=== PATIENT | female | born 1965 | race Caucasian/White ===

== ENCOUNTER 2020-04-06 11:05 | Outpatient (CLI) | payer MEDICAID ==
[2020-04-06 18:42] LABS: BASOPHILS # (AUTO) 0.1 10^3/uL (0.0-0.1); BASOPHILS % (AUTO) 0.9 %; EOSINOPHILS % (AUTO) 0.5 %; HGB - HEMOGLOBIN 11.9 g/dL (12.0-16.0); LYMPHOCYTES # (AUTO) 2.2 10^3/uL (1.5-3.5); LYMPHOCYTES % (AUTO) 40.3 %; MEAN CORPUSCULAR HGB CONC 31.9 g/dL (32.0-36.0); MEAN CORPUSCULAR VOLUME 103.3 fL (81.0-99.0); MEAN PLATELET VOLUME 10.7 fL (7.9-10.8); MONOCYTES # (AUTO) 0.4 10^3/uL (0.0-1.0); MONOCYTES % (AUTO) 6.4 %; NEUTROPHILS # (AUTO) 2.8 10^3/uL (1.5-6.6); NEUTROPHILS % (AUTO) 51.7 %; PLT - PLATELET COUNT 264 10^3/uL (130-450); RED BLOOD COUNT 3.61 10^6/uL (4.20-5.40); RED CELL DISTRIBUTION WIDTH 12.1 % (12.0-15.0); WHITE BLOOD COUNT 5.5 x10^3/uL (4.8-10.8)
[2020-04-06 18:46] LABS: ALBUMIN 4.4 g/dL (3.2-5.5); ALBUMIN/GLOBULIN RATIO 1.4 (1.0-2.2); ALKALINE PHOSPHATASE 51 IU/L (42-121); ALT ALANINE AMINOTRANSFERASE 10 IU/L (10-60); AST ASPARTATE AMINOTRANSFERASE 21 IU/L (10-42); BILIRUBIN,TOTAL 0.4 mg/dL (0.2-1.0); BUN - BLOOD UREA NITROGEN 9 mg/dL (6-20); CALCIUM 9.5 mg/dL (8.5-10.3); CARBON DIOXIDE - CO2 26 mmol/L (21-32); CHLORIDE 108 mmol/L (101-111); CHOL/HDL RATIO 3.5 (<4.4); CHOLESTEROL 237 mg/dL; CREATININE 0.4 mg/dL (0.4-1.0); GLUCOSE 87 mg/dL (70-100); HDL CHOLESTEROL 67 mg/dL; LDL CHOLESTEROL,CALCULATED 140 mg/dL; LDL/HDL RATIO 2.1 (<4.4); SODIUM 141 mmol/L (135-145); TOTAL PROTEIN 7.5 g/dL (6.7-8.2); VLDL CHOLESTEROL 30 mg/dL
[2020-04-06 20:14] LABS: HEMOGLOBIN A1c% 5.4 % (4.27-6.07)
== END 2020-04-06 23:59 | disposition home or self-care (01) ==
LOC: LAB.WCP 11:05
PROVIDERS: ATTEND Physician Assistant
DX: Z00.00 Encounter for general adult medical examination without abnormal findings (principal); E53.8 Deficiency of other specified B group vitamins; R73.03 Prediabetes
CPT/HCPCS: 36415; 80053; 80061; 82607; 83036; 83721; 84443; 85025

== ENCOUNTER 2020-07-04 14:26 | Emergency (ER) | payer MEDICAID ==
--- NOTE | 2020-07-04 15:13 | ED Physician Documentation ---
History of Present Illness - Stated complaint Stated Complaint: ABD PX, INFLAMATION - Chief complaint Chief Complaint: Abd Pain - History obtained from History obtained from: Patient - Additonal information Additional information: 54-year-old female presents to the emergency department for evaluation of left lower abdominal pain that began yesterday. She describes it as a sharp constant pressure worse with movement. No fevers no vomiting. No history of similar. She denies changes in bowel habits, no constipation bloody stools. She denies dysuria but states that she has been making very little urine over the 24 hours. Denies any pertinent past surgical history. No history of colonoscopy though she did have fecal occult testing completed to rule out colon cancer. In follow-up patient does report to me that about 8 years ago she was told that she had hematuria on a routine exam. Subsequent follow-up with urologist including a cystoscopy did not reveal any obvious cause or worrisome findings in regard to the hematuria. pmh: deneis htn, dm meds: none soc; no tobacco, etoh Review of Systems Constitutional: reports: Reviewed and negative Ears: reports: Reviewed and negative Nose: reports: Reviewed and negative Throat: reports: Reviewed and negative Cardiac: reports: Reviewed and negative Respiratory: reports: Reviewed and negative GI: reports: Abdominal Pain. denies: Nausea, Vomiting, Constipation, Diarrhea, Bloody / black stool : denies: Dysuria, Frequency, Hematuria, Discharge Skin: reports: Reviewed and negative Musculoskeletal: reports: Reviewed and negative Neurologic: reports: Reviewed and negative PD PAST MEDICAL HISTORY - Present Medications Home Medications: Ambulatory Orders Medication Instructions Recorded Confirmed Hydrocodone/Acetaminophen [[place] 1 each PO BID PRN #10 tablet 07/04/20 5-325 Tablet] Ibuprofen [Motrin] 600 mg PO Q6H PRN #30 tab 07/04/20 - Allergies Allergies/Adverse Reactions: Allergies Allergy/AdvReac Type Severity Reaction Status Date / Time No Known Drug Allergies Allergy Verified 07/04/20 15:18 PD ED PE NORMAL - General General: Alert and oriented X 3, No acute distress - Neck Neck: Supple, no meningeal sign - Cardiac Cardiac: RRR, No murmur - Respiratory Respiratory: Clear bilaterally - Abdomen Abdomen: Normal bowel sounds, Soft. No: Non tender (Focal tenderness left lower quadrant without guarding or rebound. No flank or CVA tenderness.) - Back Back: No CVA TTP, No spinal TTP - Derm Derm: Normal color, Warm and dry, No rash - Extremities Extremities: No deformity - Neuro Neuro: Alert and oriented X 3, remodeler 2-12 intact Eye Opening: Spontaneous Motor: Obeys Commands Verbal: Oriented GCS Score: 15 Results - Vitals Vitals: Vital Signs - 24 hr 07/04/20 07/04/20 07/04/20 14:35 16:40 16:56 Temperature 36.3 C L 36.7 C Heart Rate 71 68 81 Respiratory 15 18 18 Rate Blood Pressure 146/79 H 141/69 H 135/79 H O2 Saturation 100 100 100 Oxygen O2 Source Room air - Labs Labs: Laboratory Tests 07/04/20 07/04/20 07/04/20 15:00 15:30 15:30 WBC 8.2 RBC 3.74 L Hgb 12.2 Hct 37.0 MCV 98.9 MCH 32.6 H MCHC 33.0 RDW 11.6 L Plt Count 256 MPV 10.1 Neut # (Auto) 5.0 Lymph # (Auto) 2.3 [place] # (Auto) 0.8 Eos # (Auto) 0.1 Baso # (Auto) 0.0 Absolute Nucleated RBC 0.00 Nucleated RBC % 0.0 Sodium 137 Potassium 3.7 Chloride 99 L Carbon Dioxide 26 Anion Gap 12.0 BUN 10 Creatinine 0.6 Estimated GFR (MDRD) 103 Glucose 87 Calcium 9.6 Total Bilirubin 0.7 AST 19 ALT 10 Alkaline Phosphatase 55 Total Protein 7.3 Albumin 4.1 Globulin 3.2 Albumin/Globulin Ratio 1.3 Lipase 25 Urine Color YELLOW Urine Clarity CLEAR Urine pH 6.0 Ur Specific [place] <=1.005 Urine Protein NEGATIVE Urine Glucose (UA) NEGATIVE Urine Ketones TRACE Urine Occult Blood MODERATE H Urine Nitrite NEGATIVE Urine Bilirubin NEGATIVE Urine Urobilinogen 0.2 (NORMAL) Ur Leukocyte Esterase NEGATIVE Urine RBC 6-10 H Urine WBC 0-3 Ur Squamous Epith Cells RARE Squamous Urine Bacteria Rare Ur Microscopic Review INDICATED Urine Culture Comments NOT INDICATED - Rads (name of study) CT abd Radiology: Final report received (Acute sigmoid colon diverticulitis, mild severity. No abscess or pneumoperitoneum.) PD MEDICAL DECISION MAKING - ED course Complexity details: reviewed results, re-evaluated patient, considered differential, d/w patient ED course: 54-year-old female presents the emergency department for 2 days of acute left lower abdominal pain. No fevers vomiting diarrhea or bloody stools. Routine screening labs show no leukocytosis. Serum chemistry is unrevealing. She does have some hematuria in her urine. She discussed this with me and has had benign hematuria in the past previously evaluated with urologist and cystoscopy. The CT of the abdomen today shows acute sigmoid colon diverticulitis mild severity without abscess or perforation. These findings were discussed with the patient. Given mild severity lack of fevers leukocytosis and a reassuring abdominal exam at this time we will defer any antibiotics. Patient does have a follow-up appointment within the next week with her primary care provider which I have encouraged her to keep. I have advised her to have a clear liquid diet until pain begins to improve. We'll also recommend ibuprofen and a very limited amount of [place]. If pain is worsening suddenly severe she has bloody bowel movements fever she will return to the ER for a second evaluation Departure - Departure Disposition: Home, Self Care Clinical Impression: Diverticulitis Condition: Stable Record reviewed to determine appropriate education?: Yes Instructions: ED Diverticulitis Follow-Up: Rochelle Rodriguez PA [Primary Care Provider] - Prescriptions: Ibuprofen [Motrin] 600 mg PO Q6H PRN #30 tab PRN Reason: Pain Hydrocodone/Acetaminophen [[place] 5-325 Tablet] 1 each PO BID PRN #10 tablet PRN Reason: Pain Comments: Jossy I hope that you are feeling better soon. You're seen today in the ER for lower abdominal pain. Your labs are all essentially normal. As we did discuss there is a small amount of blood in your urine but had this in the past. There is no signs of infection in the urine or in your blood. The CT scan of your abdomen shows mild sigmoid colon diverticulitis. There is no abscess or perforation. Because you have mild disease, you have no fevers, your pain is relatively well controlled we would like to discharge you home. The recommendation at this time is for you to have a clear liquid diet for the next 3 to 4 days. I would expect that your symptoms are beginning to improve. As they begin to improve you can advance your diet slowly with bananas rice applesauce and toast. If at any point you find that your pain is worsening, you have bloody bowel movements, any fevers, suddenly severe pain return immediately to the ER. Do not miss follow-up with your primary care provider next week. A referral should be made for you to be seen by gastroenterology as well as have a colonoscopy scheduled in the future.
[2020-07-04 15:25] LABS: BILIRUBIN,URINE NEGATIVE (NEGATIVE); GLUCOSE, URINE (UA) NEGATIVE (NEGATIVE); KETONES,URINE (UA) TRACE mg/dL (NEGATIVE); LEUKOCYTE ESTERASE, URINE NEGATIVE (NEGATIVE); NITRITE,URINE NEGATIVE (NEGATIVE); OCCULT BLOOD,URINE MODERATE (NEGATIVE); PROTEIN,URINE NEGATIVE (NEGATIVE); UROBILINOGEN,URINE 0.2 (NORMAL) E.U./dL (NORMAL)
[2020-07-04 15:42] LABS: CLARITY,URINE CLEAR (CLEAR)
[2020-07-04 15:47] LABS: BACTERIA,URINE Rare /HPF (None Seen); SQUAMOUS EPITHELIAL CELL,UR RARE Squamous (<= Few); WBC,URINE 0-3 /HPF (0-5)
[2020-07-04 15:48] LABS: BASOPHILS % (AUTO) 0.5 %; EOSINOPHILS # (AUTO) 0.1 10^3/uL (0.0-0.7); EOSINOPHILS % (AUTO) 0.6 %; HGB - HEMOGLOBIN 12.2 g/dL (12.0-16.0); LYMPHOCYTES # (AUTO) 2.3 10^3/uL (1.5-3.5); LYMPHOCYTES % (AUTO) 28.4 %; MEAN CORPUSCULAR HEMOGLOBIN 32.6 pg (27.0-31.0); MEAN CORPUSCULAR VOLUME 98.9 fL (81.0-99.0); MEAN PLATELET VOLUME 10.1 fL (7.9-10.8); MONOCYTES # (AUTO) 0.8 10^3/uL (0.0-1.0); MONOCYTES % (AUTO) 9.2 %; NEUTROPHILS % (AUTO) 61.1 %; PLT - PLATELET COUNT 256 10^3/uL (130-450); RED BLOOD COUNT 3.74 10^6/uL (4.20-5.40); RED CELL DISTRIBUTION WIDTH 11.6 % (12.0-15.0); WHITE BLOOD COUNT 8.2 x10^3/uL (4.8-10.8)
[2020-07-04 15:56] LABS: ALBUMIN 4.1 g/dL (3.2-5.5); ALBUMIN/GLOBULIN RATIO 1.3 (1.0-2.2); BILIRUBIN,TOTAL 0.7 mg/dL (0.2-1.0); CALCIUM 9.6 mg/dL (8.5-10.3); CREATININE 0.6 mg/dL (0.4-1.0); POTASSIUM 3.7 mmol/L (3.5-5.0); TOTAL PROTEIN 7.3 g/dL (6.7-8.2)
[2020-07-04] MEDS ORDERED: IOVERSOL 320 100 ML VIAL IVP ONE ×2 (16:07→16:52)
[2020-07-04 16:57] VITALS: BP 135/79
--- NOTE | 2020-07-04 17:00 | CT Report ---
PROCEDURE: Abdomen/Pelvis W INDICATIONS: LLQ abdominal pain CONTRAST: IV CONTRAST: Optiray 320 ml: 100 PO CONTRAST: *NO PO CONTRAST TECHNIQUE: After the administration of intravenous contrast, 5 mm thick sections acquired from the diaphragms to the symphysis. 5 mm thick coronal and sagittal reformats were acquired. For radiation dose reducti on, the following was used: automated exposure control, adjustment of mA and/or kV according to korey ent size. COMPARISON: None. FINDINGS: Image quality: Excellent. ABDOMEN: Lung bases: Lung bases are clear. No pleural effusion. Heart size is normal. Solid organs: Liver and spleen are normal in size and enhancement. Calcific granuloma in the right l obe of the liver. Gallbladder is unremarkable. Biliary system is non dilated. Pancreas enhances nor [place]hel. No adrenal nodules. Kidneys demonstrate normal size and enhancement, without hydronephrosis. Right kidney inferior pole simple cyst measuring 1.6 cm. Peritoneum and bowel: Segment colon diverticulosis. Mild inflammatory change in the left lower quadra nt surrounding the sigmoid colon, (6/16). This is most compatible with acute diverticulitis. No fluid collection. No small bowel obstruction. The appendix is within normal limits in caliber. No pneumope ritoneum. Nodes and vessels: No retroperitoneal or mesenteric adenopathy by size criteria. Aorta and inferior vena cava are normal in size. Miscellaneous: No ventral hernias. PELVIS: Genitourinary: Bladder is unremarkable. Vertically oriented uterus. Miscellaneous: No inguinal hernias or adenopathy. Bones: No suspicious bony lesions. No vertebral body compression fractures. IMPRESSION: Acute sigmoid colon diverticulitis, mild severity. No abscess or pneumoperitoneum. Reviewed by: Bello Mann MD on 07/04/2020 3:59 PM [facility] Approved by: Bello Mann MD on 07/04/2020 3:59 PM [facility] Station ID: [id number]
== END 2020-07-04 17:46 | disposition home or self-care (01) ==
LOC: ED 14:26
DX: K57.32 Diverticulitis of large intestine without perforation or abscess without bleeding (principal)
CPT/HCPCS: 36415; 74177; 80053; 81001; 83690; 85025; 99284; Q9967; 81003; 87086

== ENCOUNTER 2021-02-25 08:00 | Outpatient (CLI) | payer MEDICAID ==
[2021-02-25 17:58] LABS: BASOPHILS % (AUTO) 0.7 %; EOSINOPHILS % (AUTO) 0.7 %; HCT - HEMATOCRIT 36.5 % (37.0-47.0); LYMPHOCYTES # (AUTO) 2.5 10^3/uL (1.5-3.5); LYMPHOCYTES % (AUTO) 43.7 %; MEAN CORPUSCULAR HEMOGLOBIN 33.1 pg (27.0-31.0); MEAN CORPUSCULAR HGB CONC 32.9 g/dL (32.0-36.0); MEAN CORPUSCULAR VOLUME 100.8 fL (81.0-99.0); MEAN PLATELET VOLUME 10.5 fL (7.9-10.8); MONOCYTES # (AUTO) 0.5 10^3/uL (0.0-1.0); MONOCYTES % (AUTO) 9.1 %; NEUTROPHILS # (AUTO) 2.6 10^3/uL (1.5-6.6); NEUTROPHILS % (AUTO) 45.6 %; PLT - PLATELET COUNT 259 10^3/uL (130-450); RED BLOOD COUNT 3.62 10^6/uL (4.20-5.40); RED CELL DISTRIBUTION WIDTH 12.1 % (12.0-15.0); WHITE BLOOD COUNT 5.6 x10^3/uL (4.8-10.8)
[2021-02-25 18:28] LABS: ALBUMIN 4.4 g/dL (3.2-5.5); ALBUMIN/GLOBULIN RATIO 1.7 (1.0-2.2); ALKALINE PHOSPHATASE 50 IU/L (42-121); ALT ALANINE AMINOTRANSFERASE 15 IU/L (10-60); AST ASPARTATE AMINOTRANSFERASE 23 IU/L (10-42); BILIRUBIN,TOTAL 0.8 mg/dL (0.2-1.0); BUN - BLOOD UREA NITROGEN 10 mg/dL (6-20); CALCIUM 9.2 mg/dL (8.5-10.3); CARBON DIOXIDE - CO2 29 mmol/L (21-32); CHLORIDE 102 mmol/L (101-111); CHOL/HDL RATIO 3.7 (<4.4); CHOLESTEROL 249 mg/dL; CREATININE 0.5 mg/dL (0.4-1.0); GFR - MDRD 127 (>89); GLUCOSE 83 mg/dL (70-100); HDL CHOLESTEROL 68 mg/dL; LDL CHOLESTEROL,CALCULATED 154 mg/dL; LDL/HDL RATIO 2.3 (<4.4); SODIUM 137 mmol/L (135-145); TRIGLYCERIDES 137 mg/dL; VLDL CHOLESTEROL 27 mg/dL
[2021-02-25 20:23] LABS: ESTIMATED AVERAGE GLUCOSE 114 mg/dL (70-100); HEMOGLOBIN A1c% 5.6 % (4.27-6.07)
== END 2021-02-25 23:59 | disposition home or self-care (01) ==
LOC: LAB.WCP 08:00
PROVIDERS: ATTEND Family Medicine
DX: Z00.00 Encounter for general adult medical examination without abnormal findings (principal); E78.5 Hyperlipidemia, unspecified; E53.8 Deficiency of other specified B group vitamins; R73.03 Prediabetes
CPT/HCPCS: 36415; 80053; 80061; 82607; 83036; 83721; 85025

== ENCOUNTER 2021-03-19 08:32 | Outpatient (CLI) | payer MEDICAID ==
--- NOTE | 2021-03-27 09:34 | Mammography Report ---
BILATERAL DIGITAL SCREENING MAMMOGRAM 3D/2D: 03/19/2021 CLINICAL: Family history of breast cancer. Routine screening. Comparison is made to exams dated: 10/04/2018 mammogram and 08/23/2016 mammogram - [facility]. The tissue of both breasts is heterogeneously dense. This may lower the sensitivit y of mammography. No significant masses, calcifications, or other findings are seen in either breast. There has been no significant interval change. IMPRESSION: NEGATIVE There is no mammographic evidence of malignancy. A 1 year screening mammogram is recommended. This exam was interpreted at Station ID: [id number]. NOTE: For mammograms, a report in lay terms will be sent to the patient. Approximately 15% of breast malignancies will not be visualized mammographically. In the management of a palpable breast mass, a negative mammogram must not discourage biopsy of a clinically suspicious lesion. Electronically Signed By: Alexys Valenzuela M.D. ddp/penrad:03/26/2021 11:02:53 ACR BI-RADS Category 1: Negative 3341F PARENCHYMAL PATTERN: (D) - The breast(s) demonstrate(s) heterogeneously dense fibroglandular bob em. BI-RADS CATEGORY: (1) - 1 RECOMMENDATION: (ANNUAL) - Recommend routine annual screening mammography. [id number] 1 year screening LATERALITY: (B)
== END 2021-03-19 08:33 | disposition home or self-care (01) ==
LOC: DI.N 08:32
DX: Z12.31 Encounter for screening mammogram for malignant neoplasm of breast (principal); Z80.3 Family history of malignant neoplasm of breast

== ENCOUNTER 2021-07-12 08:00 | Outpatient (CLI) | payer MEDICAID ==
[2021-07-12 13:45] LABS: BASOPHILS # (AUTO) 0.1 10^3/uL (0.0-0.1); BASOPHILS % (AUTO) 1.1 %; EOSINOPHILS # (AUTO) 0.4 10^3/uL (0.0-0.7); EOSINOPHILS % (AUTO) 5.8 %; HGB - HEMOGLOBIN 12.1 g/dL (12.0-16.0); LYMPHOCYTES # (AUTO) 2.6 10^3/uL (1.5-3.5); LYMPHOCYTES % (AUTO) 39.8 %; MEAN CORPUSCULAR HEMOGLOBIN 32.4 pg (27.0-31.0); MEAN CORPUSCULAR HGB CONC 32.7 g/dL (32.0-36.0); MEAN CORPUSCULAR VOLUME 98.9 fL (81.0-99.0); MEAN PLATELET VOLUME 10.8 fL (7.9-10.8); MONOCYTES # (AUTO) 0.5 10^3/uL (0.0-1.0); MONOCYTES % (AUTO) 7.7 %; NEUTROPHILS # (AUTO) 2.9 10^3/uL (1.5-6.6); NEUTROPHILS % (AUTO) 45.3 %; PLT - PLATELET COUNT 276 10^3/uL (130-450); RED BLOOD COUNT 3.74 10^6/uL (4.20-5.40); RED CELL DISTRIBUTION WIDTH 11.8 % (12.0-15.0); WHITE BLOOD COUNT 6.4 x10^3/uL (4.8-10.8)
[2021-07-12 14:02] LABS: ALBUMIN 4.1 g/dL (3.2-5.5); ALBUMIN/GLOBULIN RATIO 1.3 (1.0-2.2); BILIRUBIN,TOTAL 0.5 mg/dL (0.2-1.0); CALCIUM 9.5 mg/dL (8.5-10.3); CREATININE 0.6 mg/dL (0.4-1.0); POTASSIUM 3.9 mmol/L (3.5-5.0); TOTAL PROTEIN 7.3 g/dL (6.7-8.2)
[2021-07-12 14:21] LABS: FERRITIN 28.5 ng/mL (11.0-306.8)
== END 2021-07-12 23:59 | disposition home or self-care (01) ==
LOC: LAB.WCP 08:00
PROVIDERS: ATTEND Family Medicine
DX: D64.9 Anemia, unspecified (principal)
CPT/HCPCS: 36415; 80053; 82607; 82728; 83540; 84466; 85025

== ENCOUNTER 2022-03-04 17:38 | Outpatient (CLI) | payer MEDICAID ==
--- NOTE | 2022-03-05 15:02 | XRAY Report ---
PROCEDURE: Shoulder 3 View RT INDICATIONS: R SHOULDER PX TECHNIQUE: 3 views of the shoulder were acquired. COMPARISON: None. FINDINGS: Bones: No fractures or dislocations. No suspicious bony lesions. Visualized ribs appear intact. D egenerative changes of the acromioclavicular joint are present. Soft tissues: Ovoid calcification is present within the soft tissues adjacent to the humeral head. IMPRESSION: 1. No acute fracture or dislocation identified. 2. Calcification adjacent to the humeral head is suspicious for calcific rotator cuff tendinopathy. Reviewed by: Harris Garcia MD on 03/05/2022 3:01 PM PDT Approved by: Harris Garcia MD on 03/05/2022 3:01 PM PDT Station ID: [id number]
== END 2022-03-04 17:39 | disposition home or self-care (01) ==
LOC: DI.N 17:38
PROVIDERS: ATTEND Registered Nurse
DX: M25.511 Pain in right shoulder (principal)

== ENCOUNTER 2022-03-27 21:47 | Emergency (ER) | payer MEDICAID ==
[2022-03-27 22:05] VITALS: BP 127/71
--- NOTE | 2022-03-27 23:20 | XRAY Report ---
PROCEDURE: Shoulder 3 View RT INDICATIONS: acutely worsened pain TECHNIQUE: 3 views of the shoulder were acquired. COMPARISON: 03/04/2022. FINDINGS: Bones: No fractures or dislocations. No suspicious bony lesions. Visualized ribs appear intact. Soft tissues: No suspicious soft tissue calcifications. IMPRESSION: 1. No fracture or dislocation. Reviewed by: Alexys Arnold MD on 03/27/2022 11:19 PM PDT Approved by: Alexys Arnold MD on 03/27/2022 11:19 PM PDT Station ID: [id number]
[2022-03-27] MEDS: HYDROmorphone 1 MG/ML CARPUJECT IM STA (23:25)
[2022-03-27] MEDS: KETOROLAC 60 MG/2 ML VIAL IM STA (23:37)
--- NOTE | 2022-03-27 23:38 | ED Physician Documentation ---
History of Present Illness - Stated complaint Stated Complaint: RT SHOULDER PAIN - Chief complaint Chief Complaint: Ext Problem - History obtained from History obtained from: Patient - Additonal information Additional information: The patient comes to the emergency department with chief complaint of flareup of right shoulder pain. 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 The patient states she is put on a course of steroids and it seemed to get better, but then several days ago, began flaring up again. This time, patient states it hurts so much that she cannot move the shoulder. The pain is mostly anterior but it does go down her lateral upper arm. She states that she has not been moving it much because of the pain and that it is excruciating. She denies a distinct injury or trigger for this particular episode. The patient denies any numbness or tingling. She is scheduled to see an orthopedist in 2-1/2 weeks and has an MRI in about 2 weeks but states she just does not think she can wait that long. She has been taking ibuprofen and Tylenol as needed at home. No other complaints at this time. Review of Systems Ten Systems: 10 systems reviewed and negative Constitutional: reports: Reviewed and negative Eyes: reports: Reviewed and negative Ears: reports: Reviewed and negative Nose: reports: Reviewed and negative Throat: reports: Reviewed and negative Cardiac: reports: Reviewed and negative Respiratory: reports: Reviewed and negative GI: reports: Reviewed and negative : reports: Reviewed and negative Skin: reports: Reviewed and negative Musculoskeletal: reports: Joint pain Neurologic: reports: Reviewed and negative Psychiatric: reports: Reviewed and negative Endocrine: reports: Reviewed and negative Immunocompromised: reports: Reviewed and negative PD PAST MEDICAL HISTORY - Past Medical History Past Medical History: No - Past Surgical History Past Surgical History: Yes - Present Medications Home Medications: Ambulatory Orders Medication Instructions Recorded Confirmed Hydrocodone/Acetaminophen [[place] 1 each PO BID PRN #10 tablet 07/04/20 5-325 Tablet] Ibuprofen [Motrin] 600 mg PO Q6H PRN #30 tab 07/04/20 HYDROcod/ACETAM 5/325 [[place] 5/325] 1 - 2 tablet PO Q6H PRN #20 tablet 03/27/22 predniSONE [Deltasone] 10 mg PO [id number] #42 tab 03/27/22 - Allergies Allergies/Adverse Reactions: Allergies Allergy/AdvReac Type Severity Reaction Status Date / Time No Known Drug Allergies Allergy Verified 03/27/22 21:55 - Social History Does the pt smoke?: No Smoking Status: Never smoker Does the pt drink ETOH?: No Does the pt have substance abuse?: No - Immunizations Immunizations are current?: Yes PD ED PE NORMAL - Vitals Vital signs reviewed: Yes - General General: Alert and oriented X 3, No acute distress, Well developed/nourished - HEENT HEENT: Atraumatic, PERRL, EOMI, Moist mucous membranes - Neck Neck: Supple, no meningeal sign - Cardiac Cardiac: Strong equal pulses - Respiratory Respiratory: No respiratory distress - Derm Derm: Normal color, Warm and dry, No rash - Extremities Extremities: No deformity, No edema, Other (Tenderness palpation over anterior right shoulder. Severely limited range of motion, secondary to subjective pain. No deformity.) - Neuro Neuro: Alert and oriented X 3 - Psych Psych: Normal mood, Normal affect Results - Vitals Vitals: Vital Signs - 24 hr 03/27/22 21:50 Heart Rate 85 Respiratory 14 Rate Blood Pressure 127/71 O2 Saturation 97 Oxygen O2 Source Room air - Rads (name of study) Right shoulder x-ray series Radiology: Final report received, EMP read indepedently, See rad report (No fracture or dislocation) PD MEDICAL DECISION MAKING - ED course Complexity details: reviewed results, re-evaluated patient, considered differential, d/w patient ED course: The patient was treated symptomatically in the emergency department. I discussed with her that we are not going to be able to do an MRI for her shoulder in the emergency department, in part because we do not have MRI at night, but also because the indication is not emergent. I have discussed with the patient the importance of doing range of motion exercises. We have discussed hanging pot stirs and wall creates. We have also discussed symptomatic management at home with ice, ibuprofen, steroid, and narcotic analgesia. I have prescribed the latter 2 for the patient. At this point in time, she should plan to keep her appointment with orthopedics and also, continue the plan for MRI as scheduled. We discussed the usual indications for return. Departure - Departure Disposition: 01 Home, Self Care Clinical Impression: Shoulder pain, right Qualifiers: Chronicity: acute Qualified Code(s): M25.511 - Pain in right shoulder Condition: Stable Instructions: ED Shoulder Pain [facility] Prescriptions: predniSONE [Deltasone] 10 mg PO [id number] #42 tab HYDROcod/ACETAM 5/325 [[place] 5/325] 1 - 2 tablet PO Q6H PRN #20 tablet PRN Reason: Pain Comments: Your x-ray does not show any serious issues with the bone or joints at this time. You most likely have some calcific tendinitis and possibly, some scar ti ssue that is causing adhesive capsulitis. It is very important that you maintain range of motion of your shoulder is much as possible to prevent a "frozen shoulder". To help you mobilize, you may take the ibuprofen plus the steroid taper and the stronger pain medication as needed. These prescriptions have been electronically transmitted to the pharmacy at [facility] in [place]. Once you take the medications and your pain is little better, please do the hanging pot stirs and the wall creeps that we have demonstrated here in the emergency department. You should also ice your shoulder several times a day for 20 to 30 minutes at a time. Once your shoulder feels comfortable enough, it is also advisable that you do not keep in the sling all the time. This is also to prevent your shoulder from freezing up. Please continue your plans to get the MRI and follow-up with orthopedics in a couple of weeks. Discharge Date/Time: 03/28/22 00:03
[2022-03-27] MEDS: ONDANSETRON ODT 4 MG TABLET TL STA (23:58)
== END 2022-03-28 00:03 | disposition home or self-care (01) ==
LOC: ED 21:47
DX: M25.511 Pain in right shoulder (principal)
CPT/HCPCS: 73030; 96372; 99282; 99283; J1170; Q0162

== ENCOUNTER 2022-04-01 12:43 | Outpatient (CLI) | payer MEDICAID ==
--- NOTE | 2022-04-02 09:33 | MRI Report ---
PROCEDURE: Shoulder RT W/O INDICATIONS: PAIN IN RIGHT SHOULDER TECHNIQUE: Noncontrast oblique coronal T2 fast spin echo with fat saturation, oblique sagittal T1 spin echo and T2 fast spin echo with fat saturation, axial T1 spin echo and T2 fast spin echo with fat saturation t hrough the shoulder. COMPARISON: Right shoulder radiographs 03/27/2022 and 03/04/2022. FINDINGS: Image quality: Excellent. Rotator cuff: There is full-thickness tearing of the supraspinatus tendon at the anterior footprint m easuring approximately 7 mm in anteroposterior dimension. Mild osseous edema is seen in the adjacent portion of the greater tuberosity. There is moderate tendinosis of the posterior supraspinatus tendon and infraspinatus tendon. The teres minor and subscapularis tendons are intact. Mild increased T2-we ighted signal is seen throughout the supraspinatus and infraspinatus muscles. No compressive mass is seen in the suprascapular or spinoglenoid notch. No mass is seen along the visualized portions of the brachial plexus. There is mild grade 2 fatty infiltration of the teres minor muscle without increase d T2 weighted signal. The subscapularis muscle is normal in bulk. Bones and bursae: Mild osseous edema is seen at the anterior portion of the greater tuberosity adjace nt to the supraspinatus tendon tear, which may be reactive to the adjacent tendon tear versus seconda ry to traction trabecular bone injury. No discrete fracture is seen. Postsurgical changes are seen in the acromioclavicular joint without recurrent narrowing of the supraspinatus outlet. There is a mode rate subacromial/subdeltoid bursal effusion with prominent synovial hypertrophy. No significant gleno humeral joint effusion is seen. Capsule and soft tissues: There is degeneration of the superior labrum without a displaced tear. The proximal biceps long head tendon demonstrates mild tendinosis. There is partial effacement of the no rmal fat signal in the rotator interval. No capsular defect is seen. IMPRESSION: 1.Full-thickness tearing of the supraspinatus tendon at the anterior footprint measuring 0.7 cm in an teroposterior dimension superimposed on moderate supraspinatus and infraspinatus tendinosis. Osseous edema within the adjacent portion of the greater tuberosity may be reactive or secondary to traction trabecular bone injury. No definite osseous fracture is seen. 2.Diffusely increased T2-weighted signal throughout the supraspinatus and infraspinatus muscles may b e related to low-grade muscle strains, but is suspicious for early or mild denervation changes. No ma ss is seen in the suprascapular or spinoglenoid notch. There is grade [address] the [address] es minor muscle that is suspicious for mild chronic denervation changes. No mass is seen along the co urse of the axillary nerve. 3.Mild tendinosis of the proximal biceps long head tendon. 4.Widening of the acromioclavicular joint is may be postsurgical in nature. No recurrent narrowing of the supraspinatus outlet. 5.Moderate subacromial/subdeltoid bursal effusion with marked synovial hypertrophy or bursitis. Reviewed by: Harris Carroll MD on 04/02/2022 9:32 AM PDT Approved by: Harris Carroll MD on 04/02/2022 9:32 AM PDT Station ID: [id number]
== END 2022-04-01 12:44 | disposition home or self-care (01) ==
LOC: DI 12:43
PROVIDERS: ATTEND Registered Nurse
DX: M75.121 Complete rotator cuff tear or rupture of right shoulder, not specified as traumatic (principal); R60.0 Localized edema; M25.411 Effusion, right shoulder

== ENCOUNTER 2022-04-28 11:13 | Outpatient (CLI) | payer MEDICAID ==
[2022-04-28 18:01] LABS: BASOPHILS % (AUTO) 0.5 %; EOSINOPHILS # (AUTO) 0.1 10^3/uL (0.0-0.7); EOSINOPHILS % (AUTO) 0.8 %; HGB - HEMOGLOBIN 11.9 g/dL (12.0-16.0); LYMPHOCYTES # (AUTO) 2.6 10^3/uL (1.5-3.5); MEAN CORPUSCULAR HEMOGLOBIN 32.1 pg (27.0-31.0); MEAN CORPUSCULAR HGB CONC 31.3 g/dL (32.0-36.0); MEAN CORPUSCULAR VOLUME 102.4 fL (81.0-99.0); MEAN PLATELET VOLUME 10.7 fL (7.9-10.8); MONOCYTES # (AUTO) 0.6 10^3/uL (0.0-1.0); MONOCYTES % (AUTO) 8.9 %; NEUTROPHILS # (AUTO) 3.2 10^3/uL (1.5-6.6); NEUTROPHILS % (AUTO) 49.3 %; PLT - PLATELET COUNT 282 10^3/uL (130-450); RED BLOOD COUNT 3.71 10^6/uL (4.20-5.40); RED CELL DISTRIBUTION WIDTH 12.6 % (12.0-15.0); WHITE BLOOD COUNT 6.4 x10^3/uL (4.8-10.8)
[2022-04-28 18:21] LABS: % IRON SATURATION 24 % (20-50); ALBUMIN 3.8 g/dL (3.2-5.5); ALBUMIN/GLOBULIN RATIO 1.4 (1.0-2.2); ALKALINE PHOSPHATASE 49 IU/L (42-121); ALT ALANINE AMINOTRANSFERASE 14 IU/L (10-60); AST ASPARTATE AMINOTRANSFERASE 20 IU/L (10-42); BILIRUBIN,TOTAL 0.5 mg/dL (0.2-1.0); BUN - BLOOD UREA NITROGEN 8 mg/dL (6-20); CARBON DIOXIDE - CO2 28 mmol/L (21-32); CHLORIDE 106 mmol/L (101-111); CHOL/HDL RATIO 3.4 (<4.4); CHOLESTEROL 244 mg/dL; CREATININE 0.6 mg/dL (0.4-1.0); GFR - MDRD 103 (>89); GLUCOSE 87 mg/dL (70-100); HDL CHOLESTEROL 72 mg/dL; IRON 83 ug/dL (28-170); LDL CHOLESTEROL,CALCULATED 152 mg/dL; LDL/HDL RATIO 2.1 (<4.4); POTASSIUM 4.1 mmol/L (3.5-5.0); SODIUM 139 mmol/L (135-145); TOTAL IRON BINDING CAPACITY 353 ug/dL (250-450); TOTAL PROTEIN 6.6 g/dL (6.7-8.2); TRANSFERRIN 252 mg/dL (192-382); TRIGLYCERIDES 99 mg/dL; VLDL CHOLESTEROL 20 mg/dL
[2022-04-28 18:26] LABS: THYROID STIMULATING HORMONE 2.95 uIU/mL (0.34-5.60)
[2022-04-28 21:39] LABS: ESTIMATED AVERAGE GLUCOSE 123 mg/dL (70-100); HEMOGLOBIN A1c% 5.9 % (4.27-6.07)
== END 2022-04-28 11:14 | disposition home or self-care (01) ==
LOC: LAB.N 11:13
PROVIDERS: ATTEND Nurse Practitioner Family
DX: Z00.00 Encounter for general adult medical examination without abnormal findings (principal); E55.9 Vitamin D deficiency, unspecified; E53.8 Deficiency of other specified B group vitamins; D64.9 Anemia, unspecified; R73.03 Prediabetes
CPT/HCPCS: 36415; 80053; 80061; 82306; 82607; 82728; 83036; 83540; 83721; 84443; 84466; 85025

== ENCOUNTER 2022-05-28 15:17 | Outpatient (CLI) | payer MEDICAID ==
--- NOTE | 2022-05-28 16:01 | DEXA Report ---
PROCEDURE: Dexa Spine and/or Hip INDICATIONS: POST MENOPAUSAL TECHNIQUE: Dual energy x-ray absorptiometry (DXA) was performed on a [employer] System. Regions measur ed are the AP Spine, femoral neck, and if needed forearm. COMPARISON: None. FINDINGS: Lumbar Spine: Bone Mineral Density 072 g/cm/cm,T score -0.9, normal Left Hip: Bone Mineral Density 0.953 g/cm/cm,T score -0.4, normal Femoral Neck: Bone Mineral Density 0.824 g/cm/cm, T score -1.5; osteopenia (T score greater or equal to -1.0: NORMAL) (T score from -1.1 to -2.4: OSTEOPENIA) (T score less than or equal to -2.5 to: OSTEOPOROSIS) Impression: Based on WHO criteria, the patient is osteopenic. Patients with diagnosis of osteoporosis or osteopenia should have regular bone mineral density assess ment. For those eligible for Medicare, routine testing is allowed once every 2 years. Testing frequ ency can be increased for patients who have rapidly progressing disease or for those who are receivin g medical therapy to restore bone mass. -1.1 Reviewed by: Domenic Fenton MD on 05/28/2022 4:00 PM PST Approved by: Domenic Fenton MD on 05/28/2022 4:00 PM PST Station ID: [id number]
== END 2022-05-28 15:18 | disposition home or self-care (01) ==
LOC: DI 15:17
PROVIDERS: ATTEND Nurse Practitioner Family
DX: Z78.0 Asymptomatic menopausal state (principal); M85.88 Other specified disorders of bone density and structure, other site

== ENCOUNTER 2022-10-24 07:55 | Outpatient (CLI) | payer MEDICAID ==
[2022-10-24 12:32] LABS: BASOPHILS # (AUTO) 0.1 10^3/uL (0.0-0.1); BASOPHILS % (AUTO) 0.8 %; EOSINOPHILS # (AUTO) 0.2 10^3/uL (0.0-0.7); EOSINOPHILS % (AUTO) 2.4 %; HCT - HEMATOCRIT 38.4 % (37.0-47.0); HGB - HEMOGLOBIN 12.3 g/dL (12.0-16.0); LYMPHOCYTES # (AUTO) 3.3 10^3/uL (1.5-3.5); LYMPHOCYTES % (AUTO) 49.1 %; MEAN CORPUSCULAR HEMOGLOBIN 32.2 pg (27.0-31.0); MEAN CORPUSCULAR VOLUME 100.5 fL (81.0-99.0); MEAN PLATELET VOLUME 10.9 fL (7.9-10.8); MONOCYTES # (AUTO) 0.6 10^3/uL (0.0-1.0); MONOCYTES % (AUTO) 8.6 %; NEUTROPHILS # (AUTO) 2.6 10^3/uL (1.5-6.6); NEUTROPHILS % (AUTO) 38.9 %; PLT - PLATELET COUNT 253 10^3/uL (130-450); RED BLOOD COUNT 3.82 10^6/uL (4.20-5.40); RED CELL DISTRIBUTION WIDTH 12.2 % (12.0-15.0); WHITE BLOOD COUNT 6.7 x10^3/uL (4.8-10.8)
[2022-10-24 13:02] LABS: THYROID STIMULATING HORMONE 2.97 uIU/mL (0.34-5.60)
[2022-10-24 13:07] LABS: ESTIMATED AVERAGE GLUCOSE 120 mg/dL (70-100); HEMOGLOBIN A1c% 5.8 % (4.27-6.07)
[2022-10-24 13:09] LABS: FERRITIN 22.9 ng/mL (11.0-306.8)
[2022-10-24 13:11] LABS: % IRON SATURATION 22 % (20-50); ALBUMIN 3.9 g/dL (3.2-5.5); ALBUMIN/GLOBULIN RATIO 1.3 (1.0-2.2); ALKALINE PHOSPHATASE 46 IU/L (42-121); ALT ALANINE AMINOTRANSFERASE 16 IU/L (10-60); AST ASPARTATE AMINOTRANSFERASE 23 IU/L (10-42); BILIRUBIN,TOTAL 0.4 mg/dL (0.2-1.0); BUN - BLOOD UREA NITROGEN 15 mg/dL (6-20); CALCIUM 8.8 mg/dL (8.5-10.3); CARBON DIOXIDE - CO2 27 mmol/L (21-32); CHLORIDE 107 mmol/L (101-111); CHOL/HDL RATIO 3.4 (<4.4); CHOLESTEROL 247 mg/dL; CREATININE 0.6 mg/dL (0.4-1.0); GFR - MDRD 102 (>89); GLUCOSE 100 mg/dL (70-100); HDL CHOLESTEROL 72 mg/dL; IRON 79 ug/dL (28-170); LDL CHOLESTEROL,CALCULATED 149 mg/dL; LDL/HDL RATIO 2.1 (<4.4); POTASSIUM 3.9 mmol/L (3.5-5.0); SODIUM 138 mmol/L (135-145); TOTAL IRON BINDING CAPACITY 354 ug/dL (250-450); TOTAL PROTEIN 6.8 g/dL (6.7-8.2); TRANSFERRIN 253 mg/dL (192-382); TRIGLYCERIDES 128 mg/dL; VLDL CHOLESTEROL 26 mg/dL
== END 2022-10-24 07:56 | disposition home or self-care (01) ==
LOC: LAB.N 07:55
PROVIDERS: ATTEND Nurse Practitioner Family
DX: E78.5 Hyperlipidemia, unspecified (principal); R53.83 Other fatigue; E53.8 Deficiency of other specified B group vitamins; R73.03 Prediabetes
CPT/HCPCS: 36415; 80053; 80061; 82607; 82728; 83036; 83540; 83721; 84443; 84466; 85025

== ENCOUNTER 2023-06-15 13:03 | Outpatient (CLI) | payer MEDICAID ==
--- NOTE | 2023-06-16 10:27 | MRI Report ---
PROCEDURE: SHOULDER WO - RT INDICATIONS: STRAIN OF RIGHT ROTATOR CUFF TECHNIQUE: Noncontrast oblique coronal T2 fast spin echo with fat saturation, oblique sagittal T1 spin echo and T2 fast spin echo with fat saturation, axial T1 spin echo and T2 fast spin echo with fat saturation t hrough the shoulder. COMPARISON: MRI right shoulder, 03/30/2022. X-ray right shoulder, 03/27/2022. FINDINGS: Image quality: Excellent. Rotator cuff: Again noted is small full-thickness or near full-thickness tear of the supraspinatus te ndon moving the footprint. There is also partial-thickness tear along the bursal surface of the supra spinous tendon near the musculotendinous junction. No tendon retraction. No supraspinous muscle atrop hy. There is moderate infraspinatus and subscapularis tendinosis without high-grade tendon tear. Bones and bursae: No bone marrow contusions or fractures. There is moderate acromioclavicular and gl enohumeral joint degeneration. The acromion demonstrates conventional anatomy, without an os acromia le. Small glenohumeral joint effusion. Capsule and soft tissues: There is mild degenerative labral fraying. In the absence of intra-articul ar contrast, the glenohumeral ligaments appear intact. There is moderate tendinosis of the long head of the biceps tendon which demonstrates normal location and morphology. The rotator interval appears irregular. The coracohumeral ligament is thickened. IMPRESSION: 1. Full-thickness or near full-thickness tear of the supraspinous footprint. There is also partial-th ickness tear of the bursal surface of the supraspinatus tendon near the musculotendinous junction. No tendon retraction or muscle atrophy. 2. Moderate infraspinous and subscapularis tendinosis. 3. Moderate tendinosis of the long head of the biceps tendon. 4. Moderate acromioclavicular and glenohumeral joint degeneration. 5. Irregular rotator interval and thickening of coracohumeral ligament. The findings are associated w ith adhesive capsulitis. Recommend clinical correlation. Reviewed by: Domenic Fenton MD on 06/16/2023 10:26 AM PST Approved by: Domenic Fenton MD on 06/16/2023 10:26 AM PST Station ID: [id number]
== END 2023-06-15 13:04 | disposition home or self-care (01) ==
LOC: DI 13:03
PROVIDERS: ATTEND Nurse Practitioner Family
DX: M54.6 Pain in thoracic spine (principal); M62.830 Muscle spasm of back; M75.101 Unspecified rotator cuff tear or rupture of right shoulder, not specified as traumatic; M67.813 Other specified disorders of tendon, right shoulder; M19.011 Primary osteoarthritis, right shoulder; R93.6 Abnormal findings on diagnostic imaging of limbs

== ENCOUNTER 2023-06-26 10:56 | Outpatient (CLI) | payer MEDICAID ==
[2023-06-26 17:39] LABS: BASOPHILS # (AUTO) 0.1 10^3/uL (0.0-0.1); BASOPHILS % (AUTO) 1.2 %; EOSINOPHILS # (AUTO) 0.5 10^3/uL (0.0-0.7); EOSINOPHILS % (AUTO) 8.6 %; HCT - HEMATOCRIT 38.9 % (37.0-47.0); HGB - HEMOGLOBIN 12.2 g/dL (12.0-16.0); LYMPHOCYTES # (AUTO) 2.4 10^3/uL (1.5-3.5); LYMPHOCYTES % (AUTO) 41.9 %; MEAN CORPUSCULAR HEMOGLOBIN 31.8 pg (27.0-31.0); MEAN CORPUSCULAR HGB CONC 31.4 g/dL (32.0-36.0); MEAN CORPUSCULAR VOLUME 101.3 fL (81.0-99.0); MEAN PLATELET VOLUME 10.5 fL (7.9-10.8); MONOCYTES # (AUTO) 0.5 10^3/uL (0.0-1.0); MONOCYTES % (AUTO) 9.2 %; NEUTROPHILS # (AUTO) 2.2 10^3/uL (1.5-6.6); NEUTROPHILS % (AUTO) 38.9 %; PLT - PLATELET COUNT 282 10^3/uL (130-450); RED BLOOD COUNT 3.84 10^6/uL (4.20-5.40); RED CELL DISTRIBUTION WIDTH 12.2 % (12.0-15.0); WHITE BLOOD COUNT 5.7 x10^3/uL (4.8-10.8)
[2023-06-26 18:34] LABS: ALBUMIN 4.3 g/dL (3.2-5.5); ALBUMIN/GLOBULIN RATIO 1.5 (1.0-2.2); ALKALINE PHOSPHATASE 41 IU/L (42-121); ALT ALANINE AMINOTRANSFERASE 10 IU/L (10-60); AST ASPARTATE AMINOTRANSFERASE 18 IU/L (10-42); BILIRUBIN,TOTAL 0.3 mg/dL (0.2-1.0); BUN - BLOOD UREA NITROGEN 11 mg/dL (6-20); CALCIUM 9.7 mg/dL (8.5-10.3); CARBON DIOXIDE - CO2 30 mmol/L (21-32); CHLORIDE 105 mmol/L (101-111); CHOL/HDL RATIO 3.6 (<4.4); CHOLESTEROL 247 mg/dL; CREATININE 0.6 mg/dL (0.6-1.3); GFR - MDRD 102 (>89); GLUCOSE 90 mg/dL (74-104); HDL CHOLESTEROL 69 mg/dL; LDL CHOLESTEROL,CALCULATED 157 mg/dL; LDL/HDL RATIO 2.3 (<4.4); POTASSIUM 4.1 mmol/L (3.5-4.5); SODIUM 139 mmol/L (135-145); TOTAL PROTEIN 7.2 g/dL (6.4-8.9); TRIGLYCERIDES 105 mg/dL (48-352); VLDL CHOLESTEROL 21 mg/dL
[2023-06-26 18:44] LABS: THYROID STIMULATING HORMONE 2.13 uIU/mL (0.34-5.60)
[2023-06-26 21:31] LABS: ESTIMATED AVERAGE GLUCOSE 111 mg/dL (70-100); HEMOGLOBIN A1c% 5.5 % (4.27-6.07)
== END 2023-06-26 10:57 | disposition home or self-care (01) ==
LOC: LAB.N 10:56
PROVIDERS: ATTEND Nurse Practitioner Family
DX: Z00.00 Encounter for general adult medical examination without abnormal findings (principal); E55.9 Vitamin D deficiency, unspecified; E78.5 Hyperlipidemia, unspecified; R53.83 Other fatigue; D64.9 Anemia, unspecified; R73.03 Prediabetes
CPT/HCPCS: 36415; 80053; 80061; 82306; 82607; 83036; 83721; 84443; 85025

== ENCOUNTER 2023-08-04 08:00 | Outpatient (CLI) | payer MEDICAID ==
--- NOTE | 2023-08-05 09:47 | XRAY Report ---
PROCEDURE: Shoulder 3 View RT INDICATIONS: RIGHT SHOULDER PAIN TECHNIQUE: 3 views of the shoulder were acquired. COMPARISON: X-ray right shoulder, 03/27/2022. MRI right shoulder, 06/15/2023. FINDINGS: Bones: No fractures or dislocations. No suspicious bony lesions. Mild acromioclavicular and glenohu meral joint degeneration Visualized ribs appear intact. Soft tissues: No suspicious soft tissue calcifications. The visualized lungs are within normal limi ts. IMPRESSION: Mild degenerative joint disease. Reviewed by: Domenic Fenton MD on 08/05/2023 9:46 AM PST Approved by: Domenic Fenton MD on 08/05/2023 9:46 AM PST Station ID: [id number]
== END 2023-08-04 23:59 | disposition home or self-care (01) ==
LOC: DI.WOS 08:00
PROVIDERS: ATTEND Orthopaedic Surgery
DX: M19.011 Primary osteoarthritis, right shoulder (principal)

== ENCOUNTER 2024-02-18 13:15 | Outpatient (CLI) | payer MEDICAID ==
--- NOTE | 2024-02-19 13:04 | XRAY Report ---
PROCEDURE: Elbow 3+V LT INDICATIONS: ELBOW PAIN TECHNIQUE: 3 views of the elbow were acquired. COMPARISON: None FINDINGS: Bones: Nondisplaced radial neck fracture with minimal impaction Soft tissues: No elbow joint effusion. No suspicious soft tissue calcifications. IMPRESSION: Mildly impacted radial neck fracture. No articular surface involvement. Reviewed by: Mal Ambriz MD on 02/19/2024 12:02 PM NAY Approved by: Mal Ambriz MD on 02/19/2024 12:02 PM AKDT Station ID: [id number]
== END 2024-02-18 13:16 | disposition home or self-care (01) ==
LOC: DI.N 13:15
PROVIDERS: ATTEND Orthopaedic Surgery
DX: S52.135A Nondisplaced fracture of neck of left radius, initial encounter for closed fracture (principal)